=== PATIENT | male | born 2000 | race Caucasian/White ===

== ENCOUNTER 2019-01-27 20:02 | Observation (INO) ==
[2019-01-27] MEDS ORDERED: SODIUM CHLORIDE 0.9% 1000ML 2,000 ML IV ONE (20:28)
[2019-01-27] MEDS ORDERED: ONDANSETRON INJ 2 MG/ML 2 ML VIAL IV STA (20:28)
[2019-01-27 20:47] LABS: Basophils # (auto) 0.01 K/uL (0-0.2); Basophils % (auto) 0.1 %; Eosinophils # (auto) 0.02 K/uL (0-0.5); Eosinophils % (auto) 0.2 %; Hematocrit (blood only) 47.2 % (42-52); Hemoglobin 16.5 g/dL (14.0-18.0); Immature Granulocytes # (auto) 0.02 K/uL (0.00-0.02); Immature Granulocytes % (auto) 0.2 %; Lymphocytes # (auto) 1.16 K/uL (1.2-3.4); Lymphocytes % (auto) 9.5 %; Mean Corpuscular Hemoglobin 31.3 pg (25-34); Mean Corpuscular Volume 89.6 fL (80-100); Mean Platelet Volume 9.8 fL (7.4-10.4); Monocytes # (auto) 0.74 K/uL (0.11-0.59); Monocytes % (auto) 6.1 %; Neutrophils # (auto) 10.22 K/uL (1.4-6.5); Neutrophils % (auto) 83.9 %; Platelet Count 207 K/uL (130-400); RDW Coefficient of Variation 12.2 % (11.5-14.5); RDW Standard Deviation 39.8 fL (36.4-46.3); Red Blood Count 5.27 M/uL (4.7-6.1); White Blood Count 12.17 K/uL (4.8-10.8)
[2019-01-27 20:49] LABS: Appearance Urine Clear (Clear); Bilirubin Urine Negative (Negative); Blood Urine Negative (Negative); Color Urine Yellow; Glucose Urine UA Negative (Negative); Ketones Urine Trace (Negative); Leukocyte Esterase Urine Negative (Negative); Nitrite Urine Negative (Negative); Protein Urine Negative (Negative); Specific Gravity Urine 1.024 (1.000-1.030); Urobilinogen Urine Negative (Negative); pH Urine 5.5 (4.5-7.5)
[2019-01-27 21:06] LABS: Albumin Level 4.5 gm/dl (3.4-5.0); BUN Creatinine Ratio 9.9 (10-20); Calcium 9.5 mg/dl (8.5-10.1); Creatinine Clr Calc Pharmacy 91.2 ml/min; Est GFR (African American) 95.5; Est GFR (Non-African American) 82.4; Potassium 3.5 mmol/L (3.5-5.1)
[2019-01-27 21:09] LABS: Albumin Globulin Ratio 1.2 (0.9-2); Bilirubin,Total 0.8 mg/dl (0.2-1); Globulin 3.9 gm/dl (2.5-4.0); Total Protein 8.4 gm/dl (6.4-8.2)
--- NOTE | 2019-01-27 21:17 | Ultrasound Report ---
US appendix HISTORY: Pain. Nausea. rlq abd pain COMPARISON: None. FINDINGS: A tubular structure in the right lower quadrant is identified. This is suspicious for the appendix wi th maximum diameter of 9 mm. No evidence for abscess or collection by ultrasound e criteria. IMPRESSION: Probable appendicitis. The above report was generated using voice recognition software. It may contain grammatical, syntax or spelling errors. Electronically signed by: Jaydon Herrera M.D. 01/27/2019 9:15 PM
[2019-01-27] MEDS ORDERED: cefOXitin 2,000 MG/60 ML BAG IV STA ×2 (21:29→21:55)
[2019-01-27] MEDS ORDERED: LIDOCAINE HCL 1% 20 ML VIAL ONE (21:49)
[2019-01-27] MEDS ORDERED: BUPIVACAINE 0.5 % 5 MG/1 ML MPF 30ML VIAL ONE (21:49)
[2019-01-27] MEDS ORDERED: BACITRACIN OINT 15 GM TUBE ONE (21:49)
--- NOTE | 2019-01-27 22:02 | Surgery Consultation ---
Date of Consultation January 27, 2019 Assessment & Plan (1) Acute abdominal pain in right lower quadrant: pt is a 18 year-old male who presents to ER with 6 hours history RLQ pain, U/S study- 9mm appendix, WBC 12,000 IMP: acute abdominal pain, acute appendicitis, Plan, I recommend to do laparoscopic appendectomy, possible open , D/W benefits, risks nad alternatives of the surgery with pt and his Mom, the risks - infection, bleeding, abscess, they understood, they agree with the surgery, I answered all questions, Present on Admission?: Yes (2) Acute appendicitis: History of Present Illness History of Present Illness CC: RLQ pain HPI: pt is a 18 year -old male who presents to ER with 6 hours history RLQ pain, pt denies fever, no diarrhea, no nausea, no vomiting, U/S study diagnosis- 9mm appendix, possible acute appendicitis, otherwise pt is health. Allergies Allergy/AdvReac Type Severity Reaction Status Date / Time Sulfa (Sulfonamide Allergy Unknown Verified 01/27/19 20:58 Antibiotics) Home Medications Home Medications Medication Instructions Recorded Confirmed Type No Known Home Medications 12/21/17 01/27/19 History Patient History Medical History (Updated 01/27/19 @ 22:03 by Stephen Jaramillo MD) No significant medical problems (Chronic) Social History Preferred Language: Bangladeshi Feels Safe at Home: Yes Smoking Status: Never smoker Review of Systems Review of Systems: All systems reviewed & are unremarkable except as noted in HPI & below Physical Exam Constitutional: WD/WN, vitals as above well developed and well nourished ENMT: external ear and nose normal, oropharynx normal Neck: trachea midline, no thyromegaly Respiratory: normal respiratory effort, lungs clear to auscultation normal respiratory effort Cardiovascular: RRR, no murmur, no edema Rate/Rhythm: regular rate and regular rhythm Heart Sounds: normal S2 Gastrointestinal (Abdomen): Percussion/Palpation: + abdomen tender, + guarding and abdomen soft tenderness at RLQ, some rebound pain, BS +, no distend, Musculoskeletal: no cyanosis or clubbing, extremities motor strength 5/5 Skin: no rashes, warm and dry Neurologic: patellar DTR's 2+ bilat, sensation intact Psychiatric: Orientation: alert and oriented x 3 Lymphatic: no cervical or axillary lymphadenopathy Results & Data Vital Signs (Past 12 Hours) Vital Signs Temp Pulse Pulse Resp BP BP Pulse Ox 01/27/19 21:17 78 17 132/78 100 01/27/19 20:30 67 20 122/73 98 01/27/19 20:26 65 20 129/69 98 01/27/19 20:04 37.0 C 79 16 144/83 H 96 Laboratory Results Abnormal lab results 01/27/19 01/27/19 01/27/19 Range/Units 20:35 20:35 20:35 WBC 12.17 H (4.8-10.8) K/uL Neut # (Auto) 10.22 H (1.4-6.5) K/uL Lymph # (Auto) 1.16 L (1.2-3.4) K/uL [place] # (Auto) 0.74 H (0.11-0.59) K/uL BUN/Creatinine Ratio 9.9 L (10-20) Glucose 103 H (70-99) mg/dl Total Protein 8.4 H (6.4-8.2) gm/dl Urine Ketones Trace H (Negative) Diagnostic Findings US appendix HISTORY: Pain. Nausea. rlq abd pain COMPARISON: None. FINDINGS: A tubular structure in the right lower quadrant is identified. This is suspicious for the appendix with maximum diameter of 9 mm. No evidence for abscess or collection by ultrasound e criteria. IMPRESSION: Probable appendicitis.
--- NOTE | 2019-01-27 22:07 | History & Physical Bridge Note ---
Date of Service January 27, 2019 History & Physical Bridge Note I have examined the patient, reviewed the History & Physical and in the interval since the performance of the History & Physical I have noted the following changes of clinical significance: no changes noted
[2019-01-27] MEDS ORDERED: LIDOCAINE HCL 2% 2 ML VIAL/AMP(20MG/ML) INFIL ONE (22:13)
[2019-01-27] MEDS ORDERED: DEXAMETHASONE SOD INJ 4 MG/ML VIAL ONE (22:13)
[2019-01-27] MEDS ORDERED: fentaNYL citrate 100 MCG/2 ML VIAL ONE ×2 (22:13→23:00)
[2019-01-27] MEDS ORDERED: ONDANSETRON INJ 2 MG/ML 2 ML VIAL ONE (22:13)
[2019-01-27] MEDS ORDERED: PROPOFOL IV EMULSION 10 MG/ML 20 ML VIAL IV ONE (22:13)
[2019-01-27] MEDS ORDERED: SUCCINYLCHOLINE 100MG/5ML SYR ONE (22:13)
[2019-01-27] MEDS ORDERED: MIDAZOLAM HCL 1 MG/ML 2ML VIAL ONE (22:13)
[2019-01-27] MEDS ORDERED: ROCURONIUM BROMIDE 10 MG/ML 5 ML VIAL ONE (22:13)
--- NOTE | 2019-01-27 22:27 | Anesthesiology Consultation ---
Date of Service January 27, 2019 Assessment & Plan (1) Encounter for pre-operative examination: Chart Review Chart Review: Acceptable Risk for Surgery and Patient NOT seen in Pre Admission Testing Consults Requested none ASA ASA2E Proposed Anesthesia Anesthesia Type: General Risk / Benefits Reviewed With: PT / POA / Parent / Guardian, Accepts Plan and Informed Consent Obtained History Surgery Operation Date: 01/27/19 21:40 Proposed Procedures p Laparoscopic Appendectomy - Stephen Jaramillo MD Height/Weight Height: 5 ft 8 in Weight: 78.6 kg Allergies Allergy/AdvReac Type Severity Reaction Status Date / Time Sulfa (Sulfonamide Allergy Unknown Verified 01/27/19 20:58 Antibiotics) Medications Home Medications Medication Instructions Recorded Confirmed Last Taken No Known Home Medications 12/21/17 01/27/19 Unknown NPO Date Last Intake of Fluids: 01/27/19 Time Last Intake of Fluids: 20:00 Date Last Intake of Solids: 01/27/19 Time Last Intake of Solids: 16:00 Past Medical History Medical History No significant medical problems (Chronic) Exercise / Class Metabolic Activity II 4-5 Yardwork/Stairs/Walk up hill Negative for chest pain or shortness of breath. Past Surgical History Surgical History History of wisdom tooth extraction Past Anesthesia History No Hx of Anesthesia Complications History of PONV History of PONV and Hx of Motion Sickness Social History Smoking Status: Never smoker Do You Dip or Chew Tobacco: No Hx Alcohol Use: Yes Alcohol type: beer alcohol intake frequency: a few times a week (8 beers/day over weekend) Hx Substance Use: Yes substance use type: marijuana Last Used Substance: Days (ago) Review of Systems denies nausea and vomiting Patient denies active symptoms of GERD. Physical Exam Vital Signs Last Vital Signs Temp 37.0 C 01/27/19 20:04 Pulse 91 H 01/27/19 22:00 Resp 21 01/27/19 22:00 BP 136/83 01/27/19 22:00 Pulse Ox 98 01/27/19 22:00 Constitutional not obese ENMT Mouth: no TMJ abnormality and oral opening not small Thyromental Distance: > or= 3.5 Finger Breadths Mallampati Class: II Neck normal visual inspection; neck extension not limited Respiratory normal respiratory effort Auscultation: lungs clear to auscultation bilaterally Cardiovascular Rate/Rhythm: regular rate and regular rhythm Heart Sounds: no murmur Neurologic moves all extremities Psychiatric Orientation: alert and oriented x 3 Testing Laboratory Results 01/27/19 20:35 01/27/19 20:35 Urine Color Yellow 01/27/19 20:35 Urine Appearance Clear (Clear) 01/27/19 20:35 Urine pH 5.5 (4.5-7.5) 01/27/19 20:35 Ur Specific [place] 1.024 (1.000-1.030) 01/27/19 20:35 Urine Protein Negative (Negative) 01/27/19 20:35 Urine Glucose (UA) Negative (Negative) 01/27/19 20:35 Urine Ketones Trace (Negative) H 01/27/19 20:35 Urine Nitrite Negative (Negative) 01/27/19 20:35 Ur Leukocyte Esterase Negative (Negative) 01/27/19 20:35
[2019-01-27] MEDS ORDERED: HYDROmorphone INJ 2 MG/ML SYR/VIAL IV PRN (22:39)
[2019-01-27] MEDS ORDERED: ePHEDrine sulfate 50 MG/ML AMP IV PRN (22:39)
[2019-01-27] MEDS ORDERED: ATROPINE SULFATE 0.1 MG/ML 10ML SYR IV PRN (22:39)
[2019-01-27] MEDS ORDERED: PROMETHAZINE HCL 12.5 MG in SODIUM CHLORIDE 0.9% 50 ML IV PRN (22:39)
[2019-01-27] MEDS ORDERED: fentaNYL citrate 100 MCG/2 ML VIAL IV PRN (22:39)
[2019-01-27] MEDS ORDERED: ONDANSETRON INJ 2 MG/ML 2 ML VIAL IV PRN ×2 (22:39→23:59)
[2019-01-27] MEDS ORDERED: KETOROLAC 30 MG/ML VIAL ONE (23:26)
[2019-01-27] MEDS ORDERED: GLYCOPYRROLATE 0.2 MG/ML VIAL ONE (23:27)
[2019-01-27] MEDS ORDERED: NEOSTIGMINE METHYLSULFATE 5 MG/5 ML SYR ONE (23:27)
--- NOTE | 2019-01-27 23:39 | Post Operative Brief Note ---
Immediate Post Op Note v1 Date of Surgery January 27, 2019 Pre & Post Diagnosis Operation Date: 01/27/19 21:40 pre-op diagnosis: acute appendicitis Post-op diagnosis: acute appendicitis I identified the patient and participated in the time-out.: Yes Procedure Operation Date: 01/27/19 21:40 laparoscopic appendectomy Surgeon Stephen Jaramillo MD Loan Inspector technician support engineer Estimated Blood Loss 5 Findings Consistent with Post-Op Diagnosis Fluids 800ml Specimens appendix Anesthesia Type General Complications none Disposition Accompanied Patient To Recovery: Yes Disposition: Recovery Room Overlapping Procedure I was immediately available: during the entire case.
--- NOTE | 2019-01-28 00:06 | Emergency Department Note ---
Entered by Yasmine Byrne acting as a scribe for History of Present Illness General Chief complaint: Abdominal Pain Stated complaint: SHARP ABDOMINAL PAIN Source: patient History of Present Illness Onset (ago): hour(s) 6 Location: abdomen Pain Consistency: + constant Maximum Pain Intensity: 7 Current Pain Intensity: 7 Quality: + sharp Relieved By: + none Exacerbated By: + other (cough) Associated symptoms: + cough and + other (lower abdominal pain, runny nose); no loss of appetite and no nausea/vomiting Treatments prior to arrival: none The patient is a 18 year old male who presents to the Emergency Room with complaints of abdominal pain that has been ongoing for the past 6 hours. He states that nothing makes it better or worse. He denies nausea and vomiting. The patient notes that his appetite has been normal. He states that he has had a cough and runny nose recently, and that the cough exacerbates his pain. He denies testicular or groin pain. He rates his pain at a 7. No other exacerbating or remitting factors. No previous abdominal surgeries. Home Medications Home Medications Medication Instructions Recorded Confirmed Type No Known Home Medications 12/21/17 01/27/19 History Allergies Allergy/AdvReac Type Severity Reaction Status Date / Time Sulfa (Sulfonamide Allergy Unknown Verified 01/27/19 20:58 Antibiotics) Past Med/Surg History Medical History No significant medical problems (Chronic) Surgical History History of wisdom tooth extraction Social History Preferred Language: Georgian Feels Safe at Home: Yes Smoking Status: Never smoker Do You Dip or Chew Tobacco: No ; Hx Alcohol Use: Yes Alcohol type: beer Hx Substance Use: Yes substance use type: marijuana Last Used Substance: Days (ago) Review of Systems See HPI for pertinent positives & negatives. and A total of 10 systems reviewed and were otherwise negative Physical Exam Vital Signs Vital Signs - 24 hr 01/27/19 20:04 01/27/19 20:26 01/27/19 20:30 Temperature 37.0 C Temperature Source Oral Pulse Rate 79 67 Pulse Rate [Apical] 65 Pulse Rate from SpO2 Sensor 69 Respiratory Rate 16 20 20 Respiratory Effort / Characteristics Non-Labored Spontaneous Respiratory Depth Normal Respiratory Pattern Regular Blood Pressure 144/83 H 122/73 Blood Pressure [Left Arm] 129/69 Blood Pressure Mean 103 82 Blood Pressure Mean [Left Arm] 89 Pulse Oximetry 96 98 98 Oxygen Delivery Method Room Air Room Air Sepsis Recent Fever Within 48 Hours No Sepsis New/Unexplained Change in Mental Status No Sepsis Action Taken by Nursing No Action Required 01/27/19 21:17 01/27/19 21:30 01/27/19 22:00 Temperature Temperature Source Pulse Rate 78 86 91 H Pulse Rate [Apical] Pulse Rate from SpO2 Sensor 78 83 96 H Respiratory Rate 17 17 21 Respiratory Effort / Characteristics Respiratory Depth Respiratory Pattern Blood Pressure 132/78 130/77 136/83 Blood Pressure [Left Arm] Blood Pressure Mean 83 82 88 Blood Pressure Mean [Left Arm] Pulse Oximetry 100 99 98 Oxygen Delivery Method Room Air Room Air Room Air Sepsis Recent Fever Within 48 Hours Sepsis New/Unexplained Change in Mental Status Sepsis Action Taken by Nursing GENERAL: alert, sitting up in bed, in hospital gown. EYE EXAM: normal conjunctiva OROPHARYNX: no exudate, no erythema, lips, buccal mucosa, and tongue normal and mucous membranes are moist NECK: supple, no nuchal rigidity, no adenopathy, non-tender LUNGS: Clear to auscultation. Normal chest wall mechanics HEART: no murmurs, S1 normal and S2 normal ABDOMEN: pain to palpation of the right lower quadrant, normo-active bowel sounds, no masses, no rebound or guarding. BACK: Back is symmetrical on inspection and there is no deformity, no midline tenderness, no CVA tenderness. SKIN: no rashes and no bruising UPPER EXTREMITIES: upper extremities are grossly normal. LOWER EXTREMITIES: No pitting edema. NEURO EXAM: Normal sensorium, cranial nerves II-XII grossly intact, normal speech, no gross weakness of arms, no gross weakness of legs. Course Course ED COURSE: Vital signs were reviewed and showed normal vitals. The patients medical record was reviewed The above diagnostic studies were performed and reviewed. ED treatments and interventions as stated above. 2018: The patient was evaluated in room B07. A complete history and physical examination was performed. 2100: I spoke to regarding the patient 2135: Upon reevaluation, the patient is stable. I discussed my findings with the patient and he understands and agrees with the treatment plan. Based on the patients age, coexisting illnesses, exam and lab findings the d ecision to treat as an inpatient was made. The patient remained stable while under my care. The patient will be evaluated for further management. Administered Medications Discontinued Medications Bacitracin (Bacitracin) Confirm Administered Dose 45 appln .ROUTE .STK-MED ONE Stop: 01/27/19 21:50 Last Admin: 01/27/19 22:53 Dose: Not Given Documented by: [id number] Bupivacaine HCl (Marcaine 0.5% Mpf) Confirm Administered Dose 30 ml .ROUTE .STK- MED ONE Stop: 01/27/19 21:50 Last Admin: 01/27/19 23:31 Dose: 12.5 ml Documented by: [id number] Sodium Chloride (Nss 1000ml) 2,000 mls @ 999 mls/hr IV .Q2H1M ONE Stop: 01/27/19 22:28 Last Admin: 01/27/19 20:36 Dose: 999 mls/hr Documented by: [id number] Cefoxitin Sodium (Mefoxin) 2,000 mg in 60 mls @ 100 mls/hr IV NOW STA Stop: 01/27/19 22:04 Last Admin: 01/27/19 21:40 Dose: 100 mls/hr Documented by: [id number] Lidocaine HCl (Xylocaine 1% (Local)) Confirm Administered Dose 20 ml .ROUTE .STK-MED ONE Stop: 01/27/19 21:50 Last Admin: 01/27/19 23:31 Dose: 12.5 ml Documented by: [id number] Ondansetron HCl (Zofran) 4 mg IV NOW STA Stop: 01/27/19 20:29 Last Admin: 01/27/19 20:36 Dose: 4 mg Documented by: [id number] Medical Decision Making Differential Diagnosis Differential diagnosis includes: appendicitis, diverticulitis, PUD, biliary pathology, UTI, pancreatitis, obstruction, mesenteric ischemia, aortic pathology, infections, inflammatory bowel disease, renal colic, as well as others were entertained. Medical Records Attestation: I reviewed the patient's medical records. Home Medications Current Medication List: was personally reviewed by me Laboratory Data Attestation: I reviewed the patient's lab results. Result diagrams: 01/27/19 20:35 01/27/19 20:35 Lab Results 01/27/19 01/27/19 01/27/19 Range/Units 20:35 20:35 20:35 WBC 12.17 H (4.8-10.8) K/uL RBC 5.27 (4.7-6.1) M/uL Hgb 16.5 (14.0-18.0) g/dL Hct 47.2 (42-52) % MCV 89.6 (80-100) fL MCH 31.3 (25-34) pg MCHC 35.0 (32-36) g/dL RDW Std Deviation 39.8 (36.4-46.3) fL RDW Coeff of Lisa 12.2 (11.5-14.5) % Plt Count 207 (130-400) K/uL MPV 9.8 (7.4-10.4) fL Immature Gran % (Auto) 0.2 % Neut % (Auto) 83.9 % Lymph % (Auto) 9.5 % [place] % (Auto) 6.1 % Eos % (Auto) 0.2 % Baso % (Auto) 0.1 % Immature Gran # (Auto) 0.02 (0.00-0.02) K/uL Neut # (Auto) 10.22 H (1.4-6.5) K/uL Lymph # (Auto) 1.16 L (1.2-3.4) K/uL [place] # (Auto) 0.74 H (0.11-0.59) K/uL Eos # (Auto) 0.02 (0-0.5) K/uL Baso # (Auto) 0.01 (0-0.2) K/uL Sodium 136 (136-145) mmol/L Potassium 3.5 (3.5-5.1) mmol/L Chloride 103 (98-107) mmol/L Carbon Dioxide 28 (21-32) mmol/L Anion Gap 5.0 (3-11) BUN 12 (7-18) mg/dl Creatinine 1.25 (0.6-1.4) mg/dl Est Cr Clr Drug Dosing 91.2 ml/min Est GFR ( Amer) 95.5 Est GFR (Non-Af Amer) 82.4 BUN/Creatinine Ratio 9.9 L (10-20) Glucose 103 H (70-99) mg/dl Calcium 9.5 (8.5-10.1) mg/dl Total Bilirubin 0.8 (0.2-1) mg/dl AST 20 (15-37) U/L ALT 19 (12-78) U/L Alkaline Phosphatase 62 (45-117) U/L Total Protein 8.4 H (6.4-8.2) gm/dl Albumin 4.5 (3.4-5.0) gm/dl Globulin 3.9 (2.5-4.0) gm/dl Albumin/Globulin Ratio 1.2 (0.9-2) Lipase 123 (73-393) U/L Urine Color Yellow Urine Appearance Clear (Clear) Urine pH 5.5 (4.5-7.5) Ur Specific [place] 1.024 (1.000-1.030) Urine Protein Negative (Negative) Urine Glucose (UA) Negative (Negative) Urine Ketones Trace H (Negative) Urine Blood Negative (Negative) Urine Nitrite Negative (Negative) Urine Bilirubin Negative (Negative) Urine Urobilinogen Negative (Negative) Ur Leukocyte Esterase Negative (Negative) Imaging Data Radiologist's Impression: Radiology results as stated below per my review and the radiologist's interpretation: US appendix HISTORY: Pain. Nausea. rlq abd pain COMPARISON: None. FINDINGS: A tubular structure in the right lower quadrant is identified. This is suspicious for the appendix with maximum diameter of 9 mm. No evidence for abscess or collection by ultrasound e criteria. IMPRESSION: Probable appendicitis. The above report was generated using voice recognition software. It may contain grammatical, syntax or spelling errors. Electronically signed by: Jaydon Herrera M.D. 01/27/2019 9:15 PM ECG Data Attestation: I personally reviewed and interpreted this ECG as follows: Indication: + abdominal pain Rate (beats per minute): 55 Rhythm: + sinus bradycardia ECG Intervals/blocks: + Normal QT ECG [place]: + Normal ECG Findings: no PVCs Blood Pressure Blood Pressure Findings: Elevated blood pressure Blood Pressure Disposition: elevated BP felt to be situational MDM Narrative Patient is a 18-year-old male who presents the ER for right lower quadrant abdominal pain. He notes it started about 6 hours ago. Worse with coughing and movement. On exam he does have acute tenderness in right lower quadrant. IV was established blood work was obtained and showed mild leukocytosis of 12,000. No significant anemia. BMP with LFTs bilirubin and lipase was unremarkable. UA was negative. Ultrasound shows acute appendicitis in the right lower quadrant. Patient was given IV fluids and IV cefoxitin. He denied pain medication. Updated bedside admitted to general surgery. Impression & Plan Appendicitis, Abdominal pain Discharge Plan Visit Data *Final* Discharge Date/Time: 01/27/19 22:12 Chief Complaint: Abdominal Pain Stated Complaint: SHARP ABDOMINAL PAIN ED Provider: Homer Gilman Discharge Problem: Appendicitis, Abdominal pain Patient Disposition: Still a Patient Discharge Instructions Interventions: ED Discharge Assessment Last Done: 01/27/19 22:11 Discharge Problem: Appendicitis Qualifiers: Appendicitis type: unspecified Qualified Code(s): K37 - Unspecified appendicitis Abdominal pain Qualifiers: Abdominal location: unspecified location Qualified Code(s): R10.9 - Unspecified abdominal pain The scribe's documentation has been prepared under my direction and personally reviewed by me in its entirety. I confirm that the note above accurately reflects all work, treatment, procedures, and medical decision making performed by me.
--- NOTE | 2019-01-28 00:15 | Anesthesiology Progress Note ---
Date of Service January 28, 2019 Anesthesia Post Procedure Vital Signs Vital Signs: Temp Pulse Pulse Resp BP BP Pulse Ox 01/28/19 00:10 87 16 125/71 95 01/28/19 00:01 100 H 18 123/80 96 01/27/19 23:52 37.2 C 107 H 20 124/74 96 01/27/19 22:00 91 H 21 136/83 98 01/27/19 21:30 86 17 130/77 99 01/27/19 21:17 78 17 132/78 100 01/27/19 20:30 67 20 122/73 98 01/27/19 20:26 65 20 129/69 98 01/27/19 20:04 37.0 C 79 16 144/83 H 96 Pain Intensity Lower Abdomen: Pain Intensity: 2 Transfer of Care Handoff Completed per policy Notes Mental Status: alert / awake / arousable and participated in evaluation Patient Amnestic to Procedure: Yes Nausea / Vomiting: adequately controlled Pain: adequately controlled Airway Patency, RR, SpO2: stable & adequate BP & HR: stable & adequate Hydration State: stable & adequate Anesthetic Complications: no major complications apparent and Pt Satisfied with anesthetic care
[2019-01-28] MEDS ORDERED: HYDROmorphone INJ 0.5 MG/0.5 ML SYR IV PRN (00:39)
[2019-01-28] MEDS: LACTATED RINGER'S 1,000 ML IV SCH ×2 (00:51→13:13)
[2019-01-28] MEDS: OXYCODONE/ACETAMINOPHEN 5mg/325mg TAB PO PRN ×2 (00:51→07:31)
--- NOTE | 2019-01-28 01:07 | Operative Report ---
DATE OF OPERATION: 01/27/2019 PREOPERATIVE DIAGNOSIS: Acute appendicitis. POSTOPERATIVE DIAGNOSIS: Acute appendicitis. OPERATION: Laparoscopic appendectomy. SURGEON: Stephen Jaramillo MD ANESTHESIA: General. ESTIMATED BLOOD LOSS: About 5 mL. FINDINGS: Acute appendicitis. COMPLICATIONS: None. INDICATIONS OF THE PROCEDURE: This is a 18-year-old gentleman who presented with acute right lower quadrant pain. The patient had ultrasound diagnosis of acute appendicitis. I recommended to do laparoscopic appendectomy, possible open. I did talk to the patient and the patient's mother about the benefits, the risks and alternate procedure. I indicated the risks may include but not limited such as bleeding, infection and abscess. They understand. The patient signed informed consent and I answered all questions. DETAILS OF PROCEDURE: We brought the patient to the Operating Room and put the patient in supine position. The patient received sequential compression devices on bilateral legs to prevent deep venous thrombosis. Also, the patient received 2 g cefoxitin I.V. for prophylactic antibiotic. The patient received general anesthesia without difficulty. The abdomen was prepped and draped in routine sterile fashion. After time out, I injected local anesthesia by using 1% lidocaine mixed with 0.5% Marcaine just above the umbilicus then, I made a small incision just above the umbilicus, opened fascia and opened peritoneum under direct vision, put a Too trocar in and connected CO2 to create pneumoperitoneum. Flow rate is 6 liter per minute. Pressure not more than 14 mmHg. Once we got a nice pneumoperitoneum, we put the camera in, looked around the abdomen which shows normal finding of the small bowel and large bowel; however, the appendix was enlarged with significant inflammation of the appendix and confirmed the diagnosis of acute appendicitis. Then, we put another two 5 mm trocar on the left lower quadrant and mobilized the appendix. The appendix was taken down by using harmonic, rechecked, no active bleeding. Then, I used 45 mm Endo-EDGAR staple for transection on the base of the appendix, rechecked the staple line intact and no active bleeding and no leak. Then, we removed the appendix through the catch bag then we reinserted Too trocar in, connected to CO2 to create pneumoperitoneum, again looked around the abdomen, no active bleeding, no leak from staple line and then we removed all trocar under direct vision. No active bleeding from the trocar sites. Pneumoperitoneum was released. Then, I closed the umbilical incision, fascial layer by using #1 Vicryl [id number] x2, closed subcutaneous layer by using 2-0 Vicryl interruptedly, closed skin by using 4-0 Vicryl continuous running, closed another two 5 mm trocar sites skin only by using 4-0 Vicryl. Then, we put the dressing on. The patient tolerated the procedure well. All instrument, needle and sponge count were correct x2 at the end of the case. The patient was transferred to recovery room in a stable condition. After procedure, I did talk to the patient's mother about the Operating Room finding and procedure we did, she understands. Also, the specimen sent to pathology. I attest to the content of the Intraoperative Record and any orders documented therein. Any exception s are noted below.
[2019-01-28 05:24] LABS: Basophils # (auto) 0.01 K/uL (0-0.2); Basophils % (auto) 0.1 %; Hemoglobin 14.5 g/dL (14.0-18.0); Immature Granulocytes # (auto) 0.02 K/uL (0.00-0.02); Immature Granulocytes % (auto) 0.2 %; Lymphocytes # (auto) 0.68 K/uL (1.2-3.4); Lymphocytes % (auto) 7.6 %; Mean Corpuscular Hemoglobin 31.4 pg (25-34); Mean Corpuscular Hgb Conc 34.5 g/dL (32-36); Mean Corpuscular Volume 90.9 fL (80-100); Mean Platelet Volume 10.1 fL (7.4-10.4); Monocytes % (auto) 2.2 %; Neutrophils # (auto) 8.06 K/uL (1.4-6.5); Neutrophils % (auto) 89.9 %; Platelet Count 212 K/uL (130-400); RDW Coefficient of Variation 12.2 % (11.5-14.5); RDW Standard Deviation 40.6 fL (36.4-46.3); Red Blood Count 4.62 M/uL (4.7-6.1); White Blood Count 8.97 K/uL (4.8-10.8)
[2019-01-28] MEDS ORDERED: INFLUENZA VIRUS QUAD VACCINE 0.5 ML SYR IM ONE (08:00)
[2019-01-28] MEDS ORDERED: INFLUENZA ADMINISTRATION CHARGE ONE (08:00)
--- NOTE | 2019-01-28 09:59 | Surgery Progress Note ---
Date of Service January 28, 2019 Assessment & Plan (1) Acute appendicitis: POD # 1 s/p laparoscopic appendectomy -vital stable, afebrile - post op pain moderate but controlled - no n/v - adequate urine output Plan: advance diet as tolerated continue PO Percocet prn pain encouraged ambulating hallway will evaluate around lunch time, if doing well can d/c home Dr. Jaramillo has seen pt, agrees with above Subjective feeling okay pain at incision sites no n/v has not ambulated hallway yet has breakfast try of liquids in front of him Physical Exam Constitutional: WD/WN, vitals as above no acute distress Gastrointestinal (Abdomen): Inspection/Auscultation: abdomen not distended Percussion/Palpation: + abdomen tender (at incision sites) and abdomen soft; no guarding and abdomen not rigid Skin: no rashes, warm and dry + incision (covered with dry dressings) Psychiatric: A+Ox3, euthymic affect Results & Data Vital Signs (Past 12 Hours) Vital Signs Temp Pulse Pulse Pulse Resp BP BP 01/28/19 07:20 36.9 C 60 18 105/62 01/28/19 03:30 37.0 C 84 18 108/55 L 01/28/19 02:38 37 C 80 16 107/58 L 01/28/19 01:37 36.9 C 83 16 121/69 01/28/19 01:03 37.2 C 69 16 118/67 01/28/19 00:33 37.2 C 82 16 119/66 01/28/19 00:20 37.1 C 83 18 124/72 01/28/19 00:10 87 16 125/71 01/28/19 00:01 100 H 18 123/80 01/27/19 23:52 37.2 C 107 H 20 124/74 01/27/19 22:00 91 H 21 136/83 Pulse Ox 01/28/19 07:20 98 01/28/19 03:30 97 01/28/19 02:38 95 01/28/19 01:37 96 01/28/19 01:03 96 01/28/19 00:33 95 01/28/19 00:20 95 01/28/19 00:10 95 01/28/19 00:01 96 01/27/19 23:52 96 01/27/19 22:00 98 Laboratory Results 01/28/19 01/27/19 01/27/19 Range/Units 04:51 20:35 20:35 WBC 8.97 (4.8-10.8) K/uL RBC 4.62 L (4.7-6.1) M/uL Hgb 14.5 (14.0-18.0) g/dL Hct 42.0 (42-52) % MCV 90.9 (80-100) fL MCH 31.4 (25-34) pg MCHC 34.5 (32-36) g/dL RDW Std Deviation 40.6 (36.4-46.3) fL RDW Coeff of Lisa 12.2 (11.5-14.5) % Plt Count 212 (130-400) K/uL MPV 10.1 (7.4-10.4) fL Immature Gran % (Auto) 0.2 % Neut % (Auto) 89.9 % Lymph % (Auto) 7.6 % [place] % (Auto) 2.2 % Eos % (Auto) 0.0 % Baso % (Auto) 0.1 % Immature Gran # (Auto) 0.02 (0.00-0.02) K/uL Neut # (Auto) 8.06 H (1.4-6.5) K/uL Lymph # (Auto) 0.68 L (1.2-3.4) K/uL [place]rill # (Auto) 0.20 (0.11-0.59) K/uL Eos # (Auto) 0.00 (0-0.5) K/uL Baso # (Auto) 0.01 (0-0.2) K/uL Sodium 136 (136-145) mmol/L Potassium 3.5 (3.5-5.1) mmol/L Chloride 103 (98-107) mmol/L Carbon Dioxide 28 (21-32) mmol/L Anion Gap 5.0 (3-11) BUN 12 (7-18) mg/dl Creatinine 1.25 (0.6-1.4) mg/dl Est Cr Clr Drug Dosing 91.2 ml/min Est GFR ( Amer) 95.5 Est GFR (Non-Af Amer) 82.4 BUN/Creatinine Ratio 9.9 L (10-20) Glucose 103 H (70-99) mg/dl Calcium 9.5 (8.5-10.1) mg/dl Total Bilirubin 0.8 (0.2-1) mg/dl AST 20 (15-37) U/L ALT 19 (12-78) U/L Alkaline Phosphatase 62 (45-117) U/L Total Protein 8.4 H (6.4-8.2) gm/dl Albumin 4.5 (3.4-5.0) gm/dl Globulin 3.9 (2.5-4.0) gm/dl Albumin/Globulin Ratio 1.2 (0.9-2) Lipase 123 (73-393) U/L Urine Color Yellow Urine Appearance Clear (Clear) Urine pH 5.5 (4.5-7.5) Ur Specific [place] 1.024 (1.000-1.030) Urine Protein Negative (Negative) Urine Glucose (UA) Negative (Negative) Urine Ketones Trace H (Negative) Urine Blood Negative (Negative) Urine Nitrite Negative (Negative) Urine Bilirubin Negative (Negative) Urine Urobilinogen Negative (Negative) Ur Leukocyte Esterase Negative (Negative) 01/27/19 Range/Units 20:35 WBC 12.17 H (4.8-10.8) K/uL RBC 5.27 (4.7-6.1) M/uL Hgb 16.5 (14.0-18.0) g/dL Hct 47.2 (42-52) % MCV 89.6 (80-100) fL MCH 31.3 (25-34) pg MCHC 35.0 (32-36) g/dL RDW Std Deviation 39.8 (36.4-46.3) fL RDW Coeff of Lisa 12.2 (11.5-14.5) % Plt Count 207 (130-400) K/uL MPV 9.8 (7.4-10.4) fL Immature Gran % (Auto) 0.2 % Neut % (Auto) 83.9 % Lymph % (Auto) 9.5 % [place] % (Auto) 6.1 % Eos % (Auto) 0.2 % Baso % (Auto) 0.1 % Immature Gran # (Auto) 0.02 (0.00-0.02) K/uL Neut # (Auto) 10.22 H (1.4-6.5) K/uL Lymph # (Auto) 1.16 L (1.2-3.4) K/uL [place] # (Auto) 0.74 H (0.11-0.59) K/uL Eos # (Auto) 0.02 (0-0.5) K/uL Baso # (Auto) 0.01 (0-0.2) K/uL Sodium (136-145) mmol/L Potassium (3.5-5.1) mmol/L Chloride (98-107) mmol/L Carbon Dioxide (21-32) mmol/L Anion Gap (3-11) BUN (7-18) mg/dl Creatinine (0.6-1.4) mg/dl Est Cr Clr Drug Dosing ml/min Est GFR ( Amer) Est GFR (Non-Af Amer) BUN/Creatinine Ratio (10-20) Glucose (70-99) mg/dl Calcium (8.5-10.1) mg/dl Total Bilirubin (0.2-1) mg/dl AST (15-37) U/L ALT (12-78) U/L Alkaline Phosphatase (45-117) U/L Total Protein (6.4-8.2) gm/dl Albumin (3.4-5.0) gm/dl Globulin (2.5-4.0) gm/dl Albumin/Globulin Ratio (0.9-2) Lipase (73-393) U/L Urine Color Urine Appearance (Clear) Urine pH (4.5-7.5) Ur Specific [place] (1.000-1.030) Urine Protein (Negative) Urine Glucose (UA) (Negative) Urine Ketones (Negative) Urine Blood (Negative) Urine Nitrite (Negative) Urine Bilirubin (Negative) Urine Urobilinogen (Negative) Ur Leukocyte Esterase (Negative)
--- NOTE | 2019-01-28 10:17 | Anesthesiology Progress Note ---
Date of Service January 28, 2019 Anesthesia Post Procedure Vital Signs Vital Signs: Temp Pulse Pulse Pulse Resp BP BP 01/28/19 07:20 36.9 C 60 18 105/62 01/28/19 03:30 37.0 C 84 18 108/55 L 01/28/19 02:38 37 C 80 16 107/58 L 01/28/19 01:37 36.9 C 83 16 121/69 01/28/19 01:03 37.2 C 69 16 118/67 01/28/19 00:33 37.2 C 82 16 119/66 01/28/19 00:20 37.1 C 83 18 124/72 01/28/19 00:10 87 16 125/71 01/28/19 00:01 100 H 18 123/80 01/27/19 23:52 37.2 C 107 H 20 124/74 01/27/19 22:00 91 H 21 136/83 01/27/19 21:30 86 17 130/77 01/27/19 21:17 78 17 132/78 01/27/19 20:30 67 20 122/73 01/27/19 20:26 65 20 129/69 01/27/19 20:04 37.0 C 79 16 144/83 H Pulse Ox 01/28/19 07:20 98 01/28/19 03:30 97 01/28/19 02:38 95 01/28/19 01:37 96 01/28/19 01:03 96 01/28/19 00:33 95 01/28/19 00:20 95 01/28/19 00:10 95 01/28/19 00:01 96 01/27/19 23:52 96 01/27/19 22:00 98 01/27/19 21:30 99 01/27/19 21:17 100 01/27/19 20:30 98 01/27/19 20:26 98 01/27/19 20:04 96 Pain Intensity Lower Abdomen: Pain Intensity: 4 Transfer of Care Handoff Completed per policy Notes Mental Status: alert / awake / arousable Patient Amnestic to Procedure: Yes Nausea / Vomiting: adequately controlled Pain: adequately controlled and improving with treatment Airway Patency, RR, SpO2: stable & adequate BP & HR: stable & adequate Hydration State: stable & adequate Anesthetic Complications: no major complications apparent and Pt Satisfied with anesthetic care
--- NOTE | 2019-01-29 14:28 | Discharge Summary ---
Date of Service January 29, 2019 Admission HPI Per Admitting Provider HPI: pt is a 18 year -old male who presents to ER with 6 hours history RLQ pain, pt denies fever, no diarrhea, no nausea, no vomiting, U/S study diagnosis- 9mm appendix, possible acute appendicitis, otherwise pt is health. Principal Diagnosis Acute appendicitis Discharge Data Allergies Allergy/AdvReac Type Severity Reaction Status Date / Time Sulfa (Sulfonamide Allergy Unknown Verified 01/27/19 20:58 Antibiotics) Consultations 01/27/19 21:26 ED Decision to Admit Stat Procedures Performed Operation Date: 01/27/19 21:40 Actual Procedures p Laparoscopic Appendectomy - Stephen Jaramillo MD Ordered Studies 01/27/19 20:27 US appendix Stat Hospital Course (1) Acute appendicitis: Patient was taken to operating room for laparoscopic appendectomy possible open by Dr. Jaramillo. Patient was found to have acute appendicitis without perforation or abscess. Patient tolerated procedure well without any complications. Was transferred to recovery room and then to medical/surgical floor in stable condition. ON POD #1 patient was evaluated. Vitals signs stable, afebrile, tolerating clear liquid diet, ambulating, urinating without difficulty, and pain controlled with oral pain medication. Diet was advanced to regular diet and patient was encouraged to ambulate the hallway. Patient was evaluated later in the morning and was doing well. Patient was discharged home on POD #1 in stable condition. Overall hospital course was uneventful. Total Time Total Time Spent Total Time Spent (In Minutes): 30 Total Time Includes: Examination of the Patient, Discharge Planning and Medication Reconciliation Discharge Plan Discharge Items Patient Disposition: Home - Self-Care Reason For Visit: ACUTE APPENDICITIS Discharge Diagnosis: same Activity: Per Instructions section Non-emergency contact: Primary Care Provider and Surgeon Call non-emergency contact if: your symptoms worsen, your pain is not contr olled, your pain is worsening, your pain is concerning for you, you have a fever, your temperature is above 101, your wound has increased redness, your wound has increased drainage and your wound pain has increased Follow-up/Referrals: PCP,NO [Primary Care Provider] - Diet: Regular Addtl Attending Provider Instructions: Surgical discharge instructions: - No heavy lifting over 20 pounds for 4 weeks - No strenuous activity until cleared by surgeon - No submerging incisions underwater for 2 weeks (no bathing, swimming, or hot tubs) - No driving while taking narcotic pain medication or if you are still having pain - You may shower 3-4 days after your surgery. Keep dressings dry and on until then. You may wash hair and let water hit your back in meantime. Sponge bath around dressings. After 4 days, remove outer dressings and completely shower. - Leave steri strips on incisions for 7 days and then remove -Walking is encouraged multiple times daily to prevent blood clots from forming in your legs - You will be given prescription for narcotic pain medication as needed for moderate to severe pain. Take as directed. This medication may cause drowsiness or constipation. -You may take extra strength Tylenol or Ibuprofen as needed if you are only having mild pain - 650 mg of Tylenol every 6 hours as needed - 600 mg of Ibuprofen every 6 hours as needed (Take with food) - Recommend taking stool softener (Colace) daily while taking narcotic pain medication. - Follow-up in surgical office in 2 weeks. Please call office at [phone] to make an appointment. Pending Studies at Discharge: Yes (appendix pathology, will be reviewed at follow up visit) Stand-Alone Forms: My [facility], Work/School Release (Inpt), Smoking Cessation Medications and DC Order Prescriptions: New oxycodone-acetaminophen 5-325 mg tablet 1 tab PO Q4H PRN (Reason: pain) Qty: 10 RF: 0 No Action No Known Home Medications RF: 0 Discharge Orders: Discharge Order (Routine); Ordered 01/28/19 Ordered By: Hayde Dykes Admission Data Admit Date/Time: 01/27/19 23:59 Attending Provider: Stephen Jaramillo Admit Provider: Stephen Jaramillo Primary Care Provider: PCP,NO Other Providers: Stephen Jaramillo Other Interventions: Discharge Summary Assessment (RN) Last Done: 01/28/19 13:21 DC Date/Time DO NOT enter until pt leaves facility: 01/28/19 14:51
--- NOTE | 2019-01-29 14:47 | Discharge Summary ---
ADMITTING DIAGNOSIS: Acute appendicitis. DISCHARGE DIAGNOSIS: Same. OPERATION: Laparoscopic appendectomy. SURGEON: Stephen Jaramillo MD DETAILS OF DISCHARGE SUMMARY: This is a 18-year-old gentleman who presented to the ED with acute abdominal pain. The patient had ultrasound diagnosis of acute appendicitis and we took the patient to the OR. We did a laparoscopic appendectomy. The patient tolerated the procedure well. After procedure the patient transferred to recovery room and later on transferred to regular floor. The patient is doing fine. He tolerated clear diet. No nausea, no vomiting, no significant abdominal pain. PHYSICAL EXAMINATION: VITAL SIGNS: Temperature is 36.9, respiratory rate 18, blood pressure is 105/62, O2 saturation is 98%, heart rate 82. GENERAL: The patient is alert, awake, oriented x3, no distress. HEENT: Within normal limitation. NEUROLOGIC: Intact. NECK: No JVD. CHEST: Bilateral lung sounds clear. HEART: Normal S1, S2. No murmurs. ABDOMEN: Soft, nondistended. All dressing intact. Incision no redness, no drainage, no significant tenderness. Bowel sounds positive. EXTREMITIES: No edema. PLAN: The patient wanted to go home. We gave the patient postop care instruction. The patient understands. I will follow the patient in 2 weeks.
== END 2019-01-28 14:51 | disposition home or self-care (01) ==
LOC: ED 20:02 → 3N 22:12 → OR 22:12